=== PATIENT | female | born 1980 | race Hispanic/Latino ===

== ENCOUNTER → 2021-06-11 | Outpatient (CLI) | payer OTHER ==
[~2021-06-11] VITALS: Ht 5.1 cm; Wt 107.0 kg
[~2021-06-11] MED LIST: PREN-154 PO
== END | disposition home or self-care (01) ==
LOC: DTH 10:54
PROVIDERS: ATTEND Surgery
DX: E66.01 Morbid (severe) obesity due to excess calories (principal); I10 Essential (primary) hypertension; M19.91 Primary osteoarthritis, unspecified site; E11.9 Type 2 diabetes mellitus without complications
CPT/HCPCS: 97802

== ENCOUNTER → 2021-09-02 | Outpatient (CLI) | payer OTHER | END | disposition home or self-care (01) | LOC: DTH 11:26 | PROVIDERS: ATTEND Surgery | DX: Z71.3 Dietary counseling and surveillance (principal); E11.9 Type 2 diabetes mellitus without complications; I10 Essential (primary) hypertension; M19.91 Primary osteoarthritis, unspecified site; G47.33 Obstructive sleep apnea (adult) (pediatric); E66.09 Other obesity due to excess calories; Z68.36 Body mass index [BMI] 36.0-36.9, adult | CPT/HCPCS: 97803 ==

== ENCOUNTER → 2022-02-26 | Outpatient (CLI) | payer MEDICAID ==
[~2022-02-26] VITALS: Ht 157.5 cm; Wt 103.2 kg
[~2022-02-26] MED LIST changes: +0.9%NACL 1000ML 1,000 ML IV SCH; +CEFAZOLIN SODIUM 1 GM VIAL IVP SCH
[2022-02-26 15:04] LABS: BASOPHILS % (AUTO) 0.7 % (0.0-5.0); EOSINOPHILS % (AUTO) 1.4 % (0.0-8.0); HEMATOCRIT 39.3 % (36-48); LYMPHOCYTES % (AUTO) 18.2 % (21.0-51.0); MEAN CORPUSCULAR HEMOGLOBIN 24.4 pg (27.0-33.0); MEAN CORPUSCULAR HGB CONC 30.8 g/dL (32.0-36.0); MEAN CORPUSCULAR VOLUME 79.4 fL (79-99); MONOCYTES % (AUTO) 7.7 % (3.0-13.0); NEUTROPHILS % (AUTO) 71.7 % (40.0-77.0); PLATELET COUNT (AUTO) 251 K/uL (130-400); RED BLOOD CELL COUNT(AUTO) 4.95 MIL/uL (4.00-5.50); RED CELL DISTRIBUTION WIDTH 13.7 % (11.0-15.5); WHITE BLOOD COUNT (AUTO) 9.1 K/uL (4.8-10.8)
[2022-02-26 15:12] LABS: CREATININE 0.8 mg/dL (0.5-1.5); POTASSIUM 3.9 mmol/L (3.5-5.1)
[2022-02-26 15:16] LABS: INR 0.97 (0.85-1.15); PROTHROMBIN TIME 10.6 SEC (9.6-11.6)
[2022-02-26 15:18] LABS: PARTIAL THROMBOPLASTIN TIME 28.9 SEC (26.3-35.5)
[2022-02-28 08:56] VITALS: BP 168/94
== END | disposition home or self-care (01) ==
LOC: CANPREIN → DAH 10:00 → EDSTATUS 16:00
PROVIDERS: ATTEND Surgery
DX: Z01.818 Encounter for other preprocedural examination (principal); E66.01 Morbid (severe) obesity due to excess calories; E11.9 Type 2 diabetes mellitus without complications; I10 Essential (primary) hypertension; M19.90 Unspecified osteoarthritis, unspecified site; Z20.822 Contact with and (suspected) exposure to COVID-19
CPT/HCPCS: 86900; 87426; 80048; 84703; 85025; 85610; 85730; 86850; 86901; 36415; 93005; A6260

== ENCOUNTER → 2022-03-05 | Outpatient (CLI) | payer MEDICAID ==
[~2022-03-05] MED LIST changes: +0.9% NACL 500ML IV.SOLN 500 ML IV SCH; -0.9%NACL 1000ML 1,000 ML IV SCH
== END | disposition home or self-care (01) ==
LOC: DAH 10:00 → EDSTATUS 03-10 08:00
PROVIDERS: ATTEND Surgery
DX: Z01.818 Encounter for other preprocedural examination (principal); E66.01 Morbid (severe) obesity due to excess calories; I10 Essential (primary) hypertension; E11.9 Type 2 diabetes mellitus without complications; M19.90 Unspecified osteoarthritis, unspecified site
CPT/HCPCS: 71045; J0690; J7040

== ENCOUNTER 2023-04-21 09:31 | Emergency (ER) | payer MEDICAID ==
[~2023-04-21] VITALS: Ht 157.5 cm; Wt 72.6 kg
[~2023-04-21 09:31] MED LIST changes: -0.9% NACL 500ML IV.SOLN 500 ML IV SCH; -CEFAZOLIN SODIUM 1 GM VIAL IVP SCH; +INSU100C14 SQ; +IRON150C13 PO; +LABE200T7 PO; +LISI5TAB21 PO; +MULT-1283 PO; +MULT-1367 PO; -PREN-154 PO
[2023-04-21 09:33] VITALS: BP 150/102; PULSE 53; RESP 16
[2023-04-21] MEDS ORDERED: M-SA237L TP (11:14)
== END 2023-04-21 11:31 | disposition home or self-care (01) ==
LOC: EDH 09:31
DX: I73.9 Peripheral vascular disease, unspecified (principal); I83.91 Asymptomatic varicose veins of right lower extremity; M79.661 Pain in right lower leg
CPT/HCPCS: 93971